=== PATIENT | male | born 1940 | race Caucasian/White ===

== ENCOUNTER 2025-05-21 06:10 | Day surgery (SDC) | payer OTHER ==
[2025-05-20 09:50] VITALS: BMI 20.6
[2025-05-21 08:38] VITALS: TEMP 97.3
[2025-05-21 09:08] VITALS: RESP 18
[2025-05-21 09:23] VITALS: BP 142/76; PULSE 80
== END 2025-05-21 10:52 | disposition home or self-care (01) ==
LOC: JASU-ENDO 06:10
PROVIDERS: ATTEND Internal Medicine Gastroenterology
PROC: 0DBN8ZX Excision of Sigmoid Colon, Via Natural or Artificial Opening Endoscopic, Diagnostic (ICD-10-PCS; 2025-05-21)
PROC: 0DBM8ZX Excision of Descending Colon, Via Natural or Artificial Opening Endoscopic, Diagnostic (ICD-10-PCS; principal; 2025-05-21 08:00)
DX: Z12.11 Encounter for screening for malignant neoplasm of colon (principal); D12.4 Benign neoplasm of descending colon; K57.30 Diverticulosis of large intestine without perforation or abscess without bleeding; Z86.0101 Personal history of adenomatous and serrated colon polyps
CPT/HCPCS: 88305-TC